=== PATIENT | male | born 1955 | race Asian ===

== ENCOUNTER 2016-05-21 01:33 | Emergency (ER) | payer OTHER ==
[~2016-05-21] VITALS: Ht 172.7 cm; Wt 90.7 kg
[~2016-05-21 01:33] MED LIST: ASPIRIN325 M2 OR; CLOP75TA2 PO; LISI20TA24 PO
[2016-05-21] MEDS ORDERED: LIPITOR40 MG PO (01:39)
[2016-05-21 02:52] VITALS: BP 128/87; TEMP 98.2
== END 2016-05-21 02:56 | disposition home or self-care (01) ==
LOC: ED 01:33
DX: R51 Headache (principal)
CPT/HCPCS: 96361; 96374; 96375; 99284; J1100; J1200; J1885; J2405

== ENCOUNTER 2016-06-08 05:43 | Outpatient (CLI) | payer OTHER ==
[~2016-06-08 05:43] MED LIST changes: +LIPITOR40 MG PO
== END 2016-06-08 05:47 | disposition short-term general hospital (02) ==
LOC: AMB 05:43
DX: R07.89 Other chest pain (principal)
CPT/HCPCS: A0425; A0427

== ENCOUNTER 2016-06-08 05:50 | Emergency (ER) | payer OTHER ==
[~2016-06-08] VITALS: Ht 172.7 cm; Wt 90.7 kg
[2016-06-08 06:10] VITALS: TEMP 98.3
[2016-06-08 06:21] LABS: PLATELET COUNT 178 K/uL (142-355)
[2016-06-08 06:29] LABS: POTASSIUM 3.9 mmol/L (3.6-5.2); SODIUM 133 mmol/L (136-145)
[2016-06-08 07:10] VITALS: BP 147/89
== END 2016-06-08 07:15 | disposition home or self-care (01) ==
LOC: ED 05:50
DX: R07.89 Other chest pain (principal); K21.9 Gastro-esophageal reflux disease without esophagitis
CPT/HCPCS: 36415; 80053; 82550; 84484; 85027; 86318; 93005; 99284

== ENCOUNTER 2016-07-24 09:18 | Outpatient (CLI) | payer OTHER | END 2016-07-24 19:45 | disposition home or self-care (01) | LOC: US 09:18 | DX: R94.5 Abnormal results of liver function studies (principal) ==

== ENCOUNTER 2016-09-23 08:48 | Outpatient (CLI) | payer OTHER ==
[2016-09-23 09:16] LABS: PLATELET COUNT 154 K/uL (142-355)
[2016-09-23 09:25] LABS: POTASSIUM 3.6 mmol/L (3.6-5.2); SODIUM 136 mmol/L (136-145)
== END 2016-09-23 09:50 | disposition home or self-care (01) ==
LOC: LABW 08:48
PROVIDERS: Internal Medicine Gastroenterology
DX: B18.2 Chronic viral hepatitis C (principal)
CPT/HCPCS: 36415; 80053; 85027; 85610; 87902

== ENCOUNTER 2016-11-24 14:47 | Outpatient (CLI) | payer OTHER | END 2016-11-24 19:07 | disposition home or self-care (01) | LOC: RAD 14:47 | DX: M25.512 Pain in left shoulder (principal) ==

== ENCOUNTER 2016-12-07 07:55 | Emergency (ER) | payer OTHER ==
[~2016-12-07] VITALS: Ht 172.7 cm; Wt 92.8 kg
[2016-12-07 09:26] VITALS: BP 140/90; TEMP 98.4
== END 2016-12-07 09:29 | disposition home or self-care (01) ==
LOC: ED 07:55
DX: R51 Headache (principal); H65.93 Unspecified nonsuppurative otitis media, bilateral
CPT/HCPCS: 99283

== ENCOUNTER 2016-12-23 18:39 | Emergency (ER) | payer OTHER ==
[~2016-12-23] VITALS: Ht 172.7 cm; Wt 95.3 kg
[2016-12-23 18:49] VITALS: BP 147/82; TEMP 97.7
== END 2016-12-23 19:03 | disposition home or self-care (01) ==
LOC: ED 18:39
DX: H92.02 Otalgia, left ear (principal)
CPT/HCPCS: 99281

== ENCOUNTER 2017-01-03 04:06 | Outpatient (CLI) | payer OTHER ==
[2017-01-03] MEDS ORDERED: SOFOSBUVIR PO (04:27)
[2017-01-03] MEDS ORDERED: LEDIPASVIR PO (04:27)
== END 2017-01-03 04:09 | disposition short-term general hospital (02) ==
LOC: AMB 04:06
DX: R51 Headache (principal)
CPT/HCPCS: A0425; A0429

== ENCOUNTER 2017-01-03 04:12 | Emergency (ER) | payer OTHER ==
[~2017-01-03] VITALS: Ht 172.7 cm; Wt 95.3 kg
[2017-01-03 04:19] VITALS: BP 144/90; TEMP 97.9
[2017-01-03] MEDS ORDERED: LEDIPASVIR PO (04:27)
[2017-01-03] MEDS ORDERED: SOFOSBUVIR PO (04:27)
== END 2017-01-03 04:48 | disposition home or self-care (01) ==
LOC: ED 04:12
DX: R51 Headache (principal)
CPT/HCPCS: 99281

== ENCOUNTER 2017-01-06 10:02 | Emergency (ER) | payer OTHER ==
[~2017-01-06] VITALS: Ht 172.7 cm; Wt 95.3 kg
[~2017-01-06 10:02] MED LIST changes: +LEDIPASVIR PO; +SOFOSBUVIR PO
[2017-01-06 10:05] VITALS: TEMP 98.3
[2017-01-06] MEDS ORDERED: LORTAB 7.5-3251 TAB PO (10:18)
[2017-01-06] MEDS ORDERED: GABA300C2 PO (10:19)
[2017-01-06] MEDS ORDERED: CLARITIN10 MG PO (10:19)
[2017-01-06] MEDS ORDERED: TRAM50TA PO (10:21)
[2017-01-06 10:55] LABS: POTASSIUM 4.1 mmol/L (3.6-5.2); SODIUM 127 mmol/L (136-145)
[2017-01-06 11:00] LABS: PLATELET COUNT 191 K/uL (142-355)
[2017-01-06 13:10] VITALS: BP 119/76
== END 2017-01-06 13:10 | disposition home or self-care (01) ==
LOC: ED 10:02
PROVIDERS: Emergency Medicine
DX: R51 Headache (principal); M54.81 Occipital neuralgia; E87.1 Hypo-osmolality and hyponatremia
CPT/HCPCS: 36415; 80053; 80307; 81000; 85027; 85379; 85651; 96360; 99284; G0479

== ENCOUNTER 2018-05-14 13:08 | Outpatient (CLI) | payer OTHER ==
[~2018-05-14 13:08] MED LIST changes: +CLARITIN10 MG PO; +GABA300C2 PO; +LORTAB 7.5-3251 TAB PO; +TRAM50TA PO
== END 2018-05-14 23:59 | disposition home or self-care (01) ==
LOC: RAD 13:08
DX: M79.671 Pain in right foot (principal)

== ENCOUNTER 2018-09-13 07:39 | Outpatient (CLI) | payer OTHER | END 2018-09-13 22:44 | disposition home or self-care (01) | LOC: MRI 07:39 | DX: M79.671 Pain in right foot (principal) ==

== ENCOUNTER 2019-01-05 11:37 | Outpatient (CLI) | payer OTHER | END 2019-01-05 21:32 | disposition home or self-care (01) | LOC: RAD 11:37 | DX: S67.01XA Crushing injury of right thumb, initial encounter (principal) ==

== ENCOUNTER 2019-09-06 11:07 | Outpatient (CLI) | payer OTHER | END 2019-09-06 22:32 | disposition home or self-care (01) | LOC: RAD 11:07 | DX: M54.12 Radiculopathy, cervical region (principal) ==

== ENCOUNTER 2020-05-24 11:19 | Outpatient (CLI) | payer OTHER | END 2020-05-24 19:34 | disposition home or self-care (01) | LOC: US 11:19 | PROVIDERS: ATTEND Nurse Practitioner Family | DX: R10.2 Pelvic and perineal pain (principal) ==

== ENCOUNTER 2020-06-05 12:41 | Outpatient (CLI) | payer OTHER | END 2020-06-05 19:18 | disposition home or self-care (01) | LOC: RAD 12:41 | PROVIDERS: ATTEND Nurse Practitioner Family | DX: M25.551 Pain in right hip (principal); M54.17 Radiculopathy, lumbosacral region ==

== ENCOUNTER 2020-06-19 16:11 | Emergency (ER) | payer OTHER ==
[~2020-06-19] VITALS: Ht 172.7 cm; Wt 94.3 kg
[2020-06-19 16:33] VITALS: TEMP 98.13
[2020-06-19 17:40] VITALS: BP 148/82
== END 2020-06-19 17:40 | disposition home or self-care (01) ==
LOC: ED 16:11
DX: T63.391A Toxic effect of venom of other spider, accidental (unintentional), initial encounter (principal); R22.31 Localized swelling, mass and lump, right upper limb; Y92.89 Other specified places as the place of occurrence of the external cause
CPT/HCPCS: 96372; 99283; J2930

== ENCOUNTER 2020-12-10 09:44 | Outpatient (CLI) | payer OTHER | END 2020-12-10 19:32 | disposition home or self-care (01) | LOC: MRI 09:44 | PROVIDERS: ATTEND Nurse Practitioner Family | DX: M47.896 Other spondylosis, lumbar region (principal) ==

== ENCOUNTER 2021-01-07 10:38 | Outpatient (CLI) | payer OTHER | END 2021-01-07 20:23 | disposition home or self-care (01) | LOC: RAD 10:38 | PROVIDERS: ATTEND Nurse Practitioner Family | DX: I25.2 Old myocardial infarction (principal) ==

== ENCOUNTER 2021-04-02 11:14 | Outpatient (CLI) | payer OTHER | END 2021-04-02 19:29 | disposition home or self-care (01) | LOC: RAD 11:14 | PROVIDERS: ATTEND Physician Assistant Medical | DX: M54.12 Radiculopathy, cervical region (principal) ==

== ENCOUNTER 2021-04-12 09:14 | Outpatient (CLI) | payer OTHER | END 2021-04-12 19:55 | disposition home or self-care (01) | LOC: MRI 09:14 | PROVIDERS: ATTEND Physician Assistant Medical | DX: M54.12 Radiculopathy, cervical region (principal) ==

== ENCOUNTER 2021-04-30 08:26 | Emergency (ER) | payer OTHER ==
[~2021-04-30] VITALS: Ht 172.7 cm; Wt 94.3 kg
[2021-04-30 08:33] VITALS: TEMP 97.1
[2021-04-30 08:58] LABS: PLATELET COUNT 255 K/uL (142-355)
[2021-04-30 09:15] LABS: PARTIAL THROMBOPLASTIN TIME 30.3 SECONDS (24.5-33.6)
[2021-04-30 11:00] VITALS: BP 125/74
== END 2021-04-30 11:07 | disposition home or self-care (01) ==
LOC: ED 08:26
PROVIDERS: Emergency Medicine
DX: J18.9 Pneumonia, unspecified organism (principal); R79.89 Other specified abnormal findings of blood chemistry; R06.02 Shortness of breath
CPT/HCPCS: 80053; 82150; 83690; 83880; 84484; 85027; 85379; 85610; 85730; 87040; 93005; 96360; 96365; 96375; 99284; J0696; J1885; J3490; Q9963

== ENCOUNTER 2021-05-10 10:37 | Outpatient (CLI) | payer OTHER | END 2021-05-10 21:43 | disposition home or self-care (01) | LOC: US 10:37 | PROVIDERS: ATTEND Nurse Practitioner Family | DX: R93.2 Abnormal findings on diagnostic imaging of liver and biliary tract (principal) ==

== ENCOUNTER 2022-08-12 09:37 | Outpatient (CLI) | payer OTHER | END 2022-08-12 19:02 | disposition home or self-care (01) | LOC: RAD 09:37 | PROVIDERS: ATTEND Nurse Practitioner Family | DX: M79.642 Pain in left hand (principal) ==